=== PATIENT | female | born 1985 ===

== ENCOUNTER 2023-09-15 08:25 | Day surgery (SDC) | payer OTHER ==
[2023-09-15] MEDS ORDERED: POVIDONE-IODINE 118 ML BOTT TOP ONE ×2 (10:22→12:15)
[2023-09-15] MEDS ORDERED: IBU800 MG PO (11:54)
[2023-09-15] MEDS ORDERED: NEURONTIN300 MG PO (11:56)
== END 2023-09-15 13:40 | disposition home or self-care (01) ==
LOC: CIR.AMB 08:25
PROVIDERS: ATTEND Obstetrics & Gynecology Gynecology
DX: Z30.2 Encounter for sterilization (principal); N83.8 Other noninflammatory disorders of ovary, fallopian tube and broad ligament